=== PATIENT | female | born 1990 | race Caucasian/White ===

== ENCOUNTER → 2021-07-25 | Outpatient (CLI) | payer OTHER ==
--- NOTE | 2021-07-25 14:06 | RAD ---
Impression transabdominal transvaginal pelvic ultrasound 07/25/2021 INDICATION: Polycystic ovary syndrome COMPARISON STUDY: None Discussion: Ultrasound evaluation of the pelvis was performed transabdominally and transvaginally. St atic images are submitted to PACS. Uterus is unremarkable in appearance measuring 7.8 x 4.3 x 3.4 cm. Endometrial thickness is measured at 0.6 cm. Multiple nabothian cysts present. The right ovary measu res 4.1 x 1.9 x 2.2 cm. aSeveral peripherally oriented follicles are noted within the right ovary. Le ft ovary measures 3.4 x 1.8 x 2.1 cm. Similarly multiple small peripherally oriented follicles are se en on the left. Blood flow the ovaries is unremarkable. No free fluid is seen in the pelvis. Note brittaney t the number of follicles an ovarian volumes were not provided. IMPRESSION: 1. Multiple small peripherally oriented follicles bilaterally. Borderline increased size right ovary. In the appropriate clinical setting findings could be associated with polycystic ovary syndrome. 2. Nabothian cysts Electronically signed by: Williams Vaca MD (07/25/2021 2:04 PM) [id number]
== END ==
LOC: US 12:44
PROVIDERS: ATTEND Family Medicine
DX: E28.2 Polycystic ovarian syndrome (principal); N88.8 Other specified noninflammatory disorders of cervix uteri; N83.02 Follicular cyst of left ovary; N83.01 Follicular cyst of right ovary
CPT/HCPCS: 76830; 76856

== ENCOUNTER → 2022-01-13 | Outpatient (CLI) | payer OTHER ==
[2022-01-13 16:21] LABS: BASO # 0.1 x10^3/uL (0.0-0.2); BASO % 1 % (0-3); EOS # 0.2 x10^3/uL (0.0-0.7); EOS % 2 % (0-3); HEMATOCRIT 40.6 % (36.0-47.0); HEMOGLOBIN 13.3 g/dL (12.0-15.5); LYMPH # 3.2 x10^3/uL (1.0-4.8); LYMPH % 34 % (24-48); MEAN CORPUSCULAR HEMOGLOBIN 31 pg (25-35); MEAN CORPUSCULAR HGB CONC 33 g/dL (31-37); MEAN CORPUSCULAR VOLUME 95 fL (79-100); MONO # 0.6 x10^3/uL (0.0-1.1); MONO % 7 % (0-9); NEUT # 5.4 x10^3uL (1.8-7.7); NEUT % 57 % (31-73); PLATELET COUNT 328 x10^3/uL (140-400); RED BLOOD COUNT 4.28 x10^6/uL (3.50-5.40); RED CELL DISTRIBUTION WIDTH 13.1 % (11.5-14.5); WHITE BLOOD COUNT 9.5 x10^3/uL (4.0-11.0)
[2022-01-13 16:34] LABS: ALBUMIN 3.7 g/dL (3.4-5.0); ALBUMIN/GLOBULIN RATIO 1.1 (1.0-1.7); CALCIUM 8.6 mg/dL (8.5-10.1); CREATININE 0.6 mg/dL (0.6-1.0); GFR 115.9; POTASSIUM 4.1 mmol/L (3.5-5.1); TOTAL BILIRUBIN 0.2 mg/dL (0.2-1.0)
[2022-01-14 00:07] LABS: PROLACTIN 19.7 ng/mL (4.8-23.3); T3 TOTAL 177 ng/dL (71-180); THYROPEROXIDASE ANTIBODY <8 IU/mL (0-34)
[2022-01-14 03:07] LABS: HEMOGLOBIN A1C 4.9 % (4.8-5.6)
[2022-01-14 10:09] LABS: INSULIN LEVEL 15.7 uIU/mL (2.6-24.9)
[2022-01-14 18:11] LABS: CHOLESTEROL/HDL RATIO 3.2; FREE T4 0.98 ng/dL (0.76-1.46); THYROID STIM HORMONE (TSH) 1.203 uIU/mL (0.358-3.740)
== END ==
LOC: SPEC 16:00
PROVIDERS: ATTEND Nurse Practitioner Primary Care
DX: E28.2 Polycystic ovarian syndrome (principal); E07.89 Other specified disorders of thyroid
CPT/HCPCS: 36415; 80053; 80061; 82306; 82626; 83036; 83525; 84146; 84402; 84403; 84439; 84443; 84480; 85025; 86376